=== PATIENT | female | born 1930 | race Caucasian/White ===

== ENCOUNTER 2016-07-13 09:58 | Outpatient (CLI) | payer OTHER, MEDICARE ==
--- NOTE | 2016-07-13 12:17 | DIAGNOSTIC IMAGING REPORT ---
PROCEDURE: CT ABDOMEN/PELVIS W/O CONTRAST INDICATION: Low back pain. Right sciatica and right abdominal pain. Prior appendectomy and oophorectomy TECHNIQUE: Noncontrast axial images were obtained of the entire abdomen and pelvis with sagittal and coronal reformations. COMPARISON: None. FINDINGS: ABDOMEN: Moderate stool throughout the colon. Small bowel pattern is normal. There is a 2.5 cm of cyst in the right lobe of the liver. Liver is otherwise normal. Gallbladder, spleen, pancreas, and aorta are normal. Bowel pattern is normal, including appendix. Kidneys are normal size (right 9.5 cm, left 9.0 cm) with small punctate 0.5 mm nonobstructing renal calculi. There are marked calcified atheromatous change of the aorta, but no evidence of aneurysm. There is a 40% subacute compression fracture of the superior endplate of L1 with 30% narrowing of the central canal. There is a 20% subacute compression deformity of the superior endplate of L3 with 20% narrowing of the spinal canal. There are moderate degenerative changes of the lumbar spine PELVIS: Status post right total hip prosthesis with metal artifact obscuring some of the detail. Uterus and adnexal structures appear normal. No evidence of free fluid. IMPRESSION: 1. Moderate stool throughout the colon. Consider obstipation. 2. Marked calcified atheromatous changes of the aorta and iliac vessels. No evidence of aneurysm. 3. There are small bilateral nonobstructing renal calculi (0.5 mm). 4. There is a 40% subacute compression fracture of L1 with 30% narrowing of the central canal. Consider bilateral T12 radiculopathy. 5. There is a 20% subacute compression fracture of L3 with 20% narrowing of the spinal canal, but little evidence of significant canal compromise. 6. Status post right total hip prosthesis. 7. Findings called to Dr. Marlon Mccarthy. All CT scans at this facility use dose modulation, iterative reconstruction, and/or weight-based dosing when appropriate to reduce radiation dose to as low as reasonably achievable.
== END 2016-07-13 23:00 ==
LOC: CT SRH 09:58
DX: R10.9 Unspecified abdominal pain (principal); N20.0 Calculus of kidney; M48.56XA Collapsed vertebra, not elsewhere classified, lumbar region, initial encounter for fracture; Z96.641 Presence of right artificial hip joint

== ENCOUNTER 2016-08-25 10:12 | Outpatient (CLI) | payer OTHER, MEDICARE ==
--- NOTE | 2016-08-25 11:18 | DIAGNOSTIC IMAGING REPORT ---
PROCEDURE: DEXA BONE DENSITY STUDY CLINICAL INDICATION: COMPRESSION FX OF VERTEBRAL COLUM W/ROUTINE HEALING COMPARISON: None. FINDINGS: LUMBAR SPINE: Bone mineral density 1.128 g/cm2, T score 0.7 normal LEFT HIP: Bone mineral density 0.596 g/cm2, T score -2.3 osteopenia LEFT FEMORAL NECK: Bone mineral density 0.859 g/cm2, T score -0.7 normal FRACTURE RISK CALCULATION ( when applicable): 10-year fracture risk of a major osteoporotic fracture and of a hip fracture not reported because of a prior hip or vertebral fracture. (T score greater or equal to -1.0 to: NORMAL) (T score from -1.1 to -2.4: OSTEOPENIA) (T score ess than or equal to -2.5: OSTEOPOROSIS) IMPRESSION: 1. Osteopenia left hip
== END 2016-08-25 23:00 ==
LOC: XR SRH 10:12
DX: M85.88 Other specified disorders of bone density and structure, other site (principal)